=== PATIENT | female | born 1950 | race Caucasian/White ===

== ENCOUNTER 2018-08-05 10:11 | Emergency (ER) | payer MEDICARE ==
--- NOTE | 2018-08-05 11:19 | ED Physician Chart ---
ED Chief Complaint/HPI - Patient Information Date Seen:: 08/05/18 Time Seen:: 11:14 Chief Complaint:: neck pain History of Present Illness:: 67yr old female with athritus and disc pain low back with worsening neck pain after pushing a cart full of [employer] items some tingling down the arms no new weakness Allergies:: Allergies Allergy/AdvReac Type Severity Reaction Status Date / Time hydrocodone Allergy Verified 08/05/18 10:40 red dye Allergy Verified 08/05/18 10:40 Penicillins [PCN] AdvReac Verified 08/05/18 10:40 Vitals:: Vital Signs - 8 hr 08/05/18 10:41 Temp 98.3 F HR 83 RR 18 BP 125/83 O2 Sat % 98 ED Review of Systems - Review of Systems General/Constitutional: No fever Skin: No skin lesions Head: No headache Eyes: No loss of vision ENT: No earache Neck: Neck pain Cardio Vascular: No chest pain GI: No nausea, No vomiting G/U: No dysuria Musculoskeletal: No bone or joint pain Endocrine: No polyuria Psychiatric: No depression Allergic/Immuno: No urticaria Neurological: No syncope ED Septic Shock - . Is Septic Shock (SBP<90, OR Lactate>4 mmol\L) present?: No - <6hrs of presentation: Vital Signs: Vital Signs - 8 hr 08/05/18 10:41 Temp 98.3 F HR 83 RR 18 BP 125/83 O2 Sat % 98 Assessment of Lungs: Lung CTA bilateral
--- NOTE | 2018-08-05 12:31 | Diagnostic Imaging Report ---
CT cervical spine without IV contrast HISTORY: Neck pain COMPARISON: None Technique: Axial images were obtained from the skull base to the upper thoracic spine without IV contrast. Multiplanar reconstructions were made. Total DLP: 338, CTDI17.8 FINDINGS: Exam is limited due to body habitus. No evidence of an acute fracture. There is 3 mm posterior translation of the left lateral mass of C1 in relation to C2. Multilevel advanced degenerative changes are seen with fusion of the C5 and C6 vertebral bodies. Advanced disc space loss of height is also seen at C6/C7. There is also 2 mm anterolisthesis of C4 on C5. Advanced facet degenerative changes are noted. There is mild spinal scoliosis. There is prominence of the posterior right lower thyroid gland extending to the right para esophageal region. Chronic changes of the lung apices are noted. Atherosclerosis is noted. IMPRESSION: No evidence of an acute fracture. 3 mm posterior translation of the left lateral mass of C1 in relation to the C2, possibly positional or may be due to degenerative etiologies. Traumatic etiology is less likely, please correlate clinically Advanced degenerative changes as detailed above. 2 mm anterolisthesis of C4 on C5 likely due to facet arthropathy. Prominence of the right lobe of the thyroid gland extending posteriorly to the right paraesophageal region. Atherosclerotic vascular disease.
== END 2018-08-05 12:45 | disposition home or self-care (01) ==
LOC: ER 10:11
DX: M54.2 Cervicalgia (principal); M19.90 Unspecified osteoarthritis, unspecified site; Z88.0 Allergy status to penicillin; Z88.5 Allergy status to narcotic agent; Z91.041 Radiographic dye allergy status
CPT/HCPCS: 99284; 96372; 72125; J1885